=== PATIENT | male | born 1955 | race Caucasian/White ===

== ENCOUNTER 2023-08-13 13:19 | Inpatient (IN) | payer OTHER ==
[~2023-08-13 13:19] MED LIST: Iopamidol-370 76% 500 ML MDV (1 ML CHARGE) ONE
[2023-08-13] MEDS ORDERED: methylPREDNISolone Sod Succ/PF 125 MG/2 ML VIAL ONE (14:33)
[2023-08-13] MEDS ORDERED: Furosemide 40 MG/4 ML VIAL ONE (14:33)
[2023-08-13] MEDS ORDERED: Ipratropium/Albuterol 3 ML NEB ONE (15:29)
[2023-08-13 15:34] LABS: #Basophils 0.1 thou/uL (0.0-0.2); #Eosinphils 1.1 thou/uL (0.0-0.7); #Monocytes 0.7 thou/uL (0.11-0.59); %Basophils 0.9 % (0.0-1.0); %Eosinophils 12.2 % (0.0-10.0); %Lymphocytes 13.9 % (21.0-51.0); %Monocytes 7.9 % (0.0-10.0); %Neutrophils 64.8 % (42.0-75.0); Hematocrit 39.9 % (42.0-52.0); Hemoglobin 12.4 g/dL (14.0-18.0); Mean Corpuscular HGB CONC 31.1 g/dL (32.0-36.0); Mean Corpuscular Volume 83.6 fl (78.0-98.0); Mean Platelet Volume 9.3 fL (7.4-10.4); Platelet Count 258 10x3/uL (130-400); Red Blood Cell (RBC) Count 4.77 mill/uL (4.70-6.10); White Blood Cell (WBC) Count 9.3 10x3/uL (4.8-10.8)
[2023-08-13] MEDS ORDERED: dilTIAZem 25 MG/5 ML VIAL ONE (15:40)
[2023-08-13 15:48] LABS: INR-International Normal Ratio 1.3; PTT 32.7 sec (22.9-36.1); Prothrombin Time 16.7 sec (12.0-14.7)
[2023-08-13 15:56] LABS: D-Dimer Test 5.26 *mcg/mL (0.27-0.43)
[2023-08-13 16:01] LABS: ALT (SGPT) 8 U/L (8-55); AST (SGOT) 12 U/L (5-34); Albumin 3.6 g/dL (3.4-4.8); Alkaline Phosphatase 210 U/L (40-110); Anion Gap 16 mmol/L (10-20); BUN (Urea Nitrogen) 13 mg/dL (8.4-25.7); Bilirubin, Total 1.5 mg/dL (0.2-1.2); Calc. Creatinine Clearance 0 mL/min (70-130); Calcium 8.6 mg/dL (7.8-10.44); Carbon Dioxide 19 mmol/L (23-31); Chloride 103 mmol/L (98-107); Estimated GFR 99; Globulin 2.7 g/dL (2.4-3.5); Glucose 118 mg/dL (80-115); Lipase 7 U/L (8-78); Magnesium 1.7 mg/dL (1.6-2.6); Potassium 3.9 mmol/L (3.5-5.1); Protein, Total 6.3 g/dL (5.8-8.1); Sodium 134 mmol/L (136-145)
[2023-08-13 16:02] LABS: Troponin I 0.059 ng/mL (< 0.028)
[2023-08-13] MEDS ORDERED: Heparin 5,000 UNITS/ML VIAL ONE (16:32)
[2023-08-13] MEDS ORDERED: Heparin 25,000 units/D5W 500 ML ONE (16:32)
[2023-08-13 17:14] LABS: Bacteria/HPF None Seen HPF (None Seen); Bilirubin Negative (Negative); Blood, Urine Negative (Negative); CAUTI Indications for Culture Pelvic or flank pain; Clarity Clear (Clear); Glucose, Urine (Dipstick) Normal (Negative); Ketone, Urine Negative (Negative); Leukocyte Negative Leu/uL (Negative); Nitrite Negative (Negative); Protein, Urine (Dipstick) Negative (Neg-Trace); RBC/HPF 0-3 HPF (0-3); Specific Gravity, Urine 1.006 (1.002-1.036); Squamous Epithelial None Seen HPF (0-3); Urobilinogen Normal mg/dL (Less than 2); WBC/HPF 0-3 HPF (0-3); pH, Urine 6.5 (5.0-9.0)
[2023-08-13 17:15] LABS: Urine Culture Reflex No No
[2023-08-13] MEDS ORDERED: Ondansetron PF 4 MG/2 ML Vial IVP PRN (17:53)
[2023-08-13] MEDS ORDERED: Acetaminophen 325 MG TAB PO PRN (17:53)
[2023-08-13] MEDS ORDERED: Ondansetron ODT 4 MG TAB PO PRN (17:53)
[2023-08-13] MEDS ORDERED: Acetaminophen 650 MG Suppository PR PRN (17:53)
[2023-08-13] MEDS ORDERED: Ondansetron PF 4 MG/2 ML Vial ONE (17:54)
[2023-08-13] MEDS ORDERED: Ipratropium/Albuterol 3 ML NEB NEB PRN (17:57)
[2023-08-13] MEDS ORDERED: Electrolyte Replacement Protocol 1 EACH FS SCH (18:30)
[2023-08-13 19:40] VITALS: BMI 35.1
[2023-08-13] MEDS: Enoxaparin 120 MG/0.8 ML SYRINGE SC SCH (20:56)
[2023-08-13] MEDS ORDERED: Enoxaparin 100 MG (1 mL) SYRINGE SC SCH (21:00)
[2023-08-13] MEDS ORDERED: Magnesium 2 GM/50 ML(in water) 2 GM in Premix 1 BAG IVPB SCH (21:30)
[2023-08-14] MEDS: Furosemide 40 MG/4 ML VIAL SLOW IVP SCH ×2 (06:39→14:58)
[2023-08-14 07:24] LABS: #Monocytes 0.3 thou/uL (0.11-0.59); %Basophils 0.1 % (0.0-1.0); %Eosinophils 0.1 % (0.0-10.0); %Monocytes 4.8 % (0.0-10.0); %Neutrophils 85.6 % (42.0-75.0); Hematocrit 39.6 % (42.0-52.0); Hemoglobin 12.2 g/dL (14.0-18.0); Mean Corpuscular HGB CONC 30.8 g/dL (32.0-36.0); Mean Corpuscular Hemoglobin 26.1 pg (27.0-31.0); Mean Corpuscular Volume 84.8 fl (78.0-98.0); Mean Platelet Volume 9.9 fL (7.4-10.4); Platelet Count 189 10x3/uL (130-400); RBC Distribution Width 17.1 % (11.5-14.5); Red Blood Cell (RBC) Count 4.67 mill/uL (4.70-6.10)
[2023-08-14 07:48] LABS: Anion Gap 15 mmol/L (10-20); BUN (Urea Nitrogen) 12 mg/dL (8.4-25.7); Calc. Creatinine Clearance 168 mL/min (70-130); Calcium 8.4 mg/dL (7.8-10.44); Carbon Dioxide 19 mmol/L (23-31); Chloride 105 mmol/L (98-107); Estimated GFR 103; Glucose 121 mg/dL (80-115); Magnesium 1.8 mg/dL (1.6-2.6); Potassium 3.8 mmol/L (3.5-5.1); Sodium 135 mmol/L (136-145)
[2023-08-14] MEDS: Enoxaparin 120 MG/0.8 ML SYRINGE SC SCH ×2 (08:04→20:53)
[2023-08-14] MEDS ORDERED: Aspirin Chewable 81 MG TAB PO SCH (09:00)
[2023-08-14] MEDS ORDERED: Albuterol 200 PUFF (6.7GM INHALER) INH PRN (10:41)
[2023-08-14] MEDS ORDERED: Lactulose 20 GM (30 mL) UDCUP PO PRN (10:49)
[2023-08-14] MEDS ORDERED: Clopidogrel Bisulfate 75 MG TAB PO SCH (12:15)
[2023-08-14] MEDS ORDERED: Magnesium 2 GM/50 ML(in water) 2 GM in Premix 1 BAG IVPB SCH (14:15)
[2023-08-14] MEDS: Ipratropium Bromide 2.5 ml Neb NEB SCH ×2 (14:45→19:47)
[2023-08-14] MEDS: Carvedilol 6.25 MG TAB PO SCH (18:16)
[2023-08-14] MEDS: Arformoterol 15 MCG/2 ML NEB NEB SCH (19:47)
[2023-08-14] MEDS: Atorvastatin Calcium 40 MG TAB PO SCH (20:54)
[2023-08-14] MEDS: Terazosin HCl 5 MG CAP PO SCH (20:54)
[2023-08-15] MEDS: Ipratropium Bromide 2.5 ml Neb NEB SCH ×5 (01:05→23:20)
[2023-08-15] MEDS: Furosemide 40 MG/4 ML VIAL SLOW IVP SCH ×2 (05:42→15:06)
[2023-08-15] MEDS ORDERED: Metolazone 5 MG TAB PO SCH (07:30)
[2023-08-15] MEDS: Arformoterol 15 MCG/2 ML NEB NEB SCH ×2 (08:02→19:29)
[2023-08-15] MEDS: Digoxin 0.125 MG TAB PO SCH (08:34)
[2023-08-15] MEDS: Empagliflozin 10 MG TAB PO SCH (08:35)
[2023-08-15] MEDS: Spironolactone 25 MG TAB PO SCH (08:35)
[2023-08-15] MEDS: Carvedilol 6.25 MG TAB PO SCH ×2 (08:36→17:26)
[2023-08-15] MEDS: Clopidogrel Bisulfate 75 MG TAB PO SCH (08:36)
[2023-08-15] MEDS: Magnesium Oxide 400 MG TAB PO SCH (08:36)
[2023-08-15] MEDS: Lisinopril 2.5 MG TAB PO SCH (08:37)
[2023-08-15] MEDS: Enoxaparin 120 MG/0.8 ML SYRINGE SC SCH (08:38)
[2023-08-15] MEDS ORDERED: Rivaroxaban 10 MG TAB PO STA (11:10)
[2023-08-15 12:28] LABS: Magnesium 1.7 mg/dL (1.6-2.6)
[2023-08-15] MEDS: Atorvastatin Calcium 40 MG TAB PO SCH (20:13)
[2023-08-15] MEDS: Terazosin HCl 5 MG CAP PO SCH (20:14)
[2023-08-16] MEDS: Furosemide 40 MG/4 ML VIAL SLOW IVP SCH ×2 (05:40→16:19)
[2023-08-16 06:59] LABS: #Basophils 0.1 thou/uL (0.0-0.2); #Eosinphils 0.7 thou/uL (0.0-0.7); #Monocytes 0.7 thou/uL (0.11-0.59); #Neutrophils 5.5 thou/uL (1.40-6.50); %Basophils 0.7 % (0.0-1.0); %Eosinophils 8.4 % (0.0-10.0); %Lymphocytes 16.4 % (21.0-51.0); %Monocytes 8.6 % (0.0-10.0); %Neutrophils 65.5 % (42.0-75.0); Hematocrit 37.6 % (42.0-52.0); Hemoglobin 11.6 g/dL (14.0-18.0); Mean Corpuscular HGB CONC 30.9 g/dL (32.0-36.0); Mean Corpuscular Hemoglobin 25.9 pg (27.0-31.0); Mean Corpuscular Volume 83.9 fl (78.0-98.0); Mean Platelet Volume 9.9 fL (7.4-10.4); Platelet Count 223 10x3/uL (130-400); Red Blood Cell (RBC) Count 4.48 mill/uL (4.70-6.10); White Blood Cell (WBC) Count 8.4 10x3/uL (4.8-10.8)
[2023-08-16] MEDS: Arformoterol 15 MCG/2 ML NEB NEB SCH ×2 (07:05→19:03)
[2023-08-16] MEDS: Ipratropium Bromide 2.5 ml Neb NEB SCH ×4 (07:07→23:18)
[2023-08-16 07:25] LABS: Anion Gap 14 mmol/L (10-20); BUN (Urea Nitrogen) 18 mg/dL (8.4-25.7); Calc. Creatinine Clearance 123 mL/min (70-130); Calcium 8.8 mg/dL (7.8-10.44); Carbon Dioxide 28 mmol/L (23-31); Chloride 96 mmol/L (98-107); Estimated GFR 96; Glucose 116 mg/dL (80-115); Sodium 134 mmol/L (136-145)
[2023-08-16] MEDS ORDERED: Metolazone 5 MG TAB PO SCH (08:00)
[2023-08-16] MEDS: Digoxin 0.125 MG TAB PO SCH (08:24)
[2023-08-16] MEDS: Spironolactone 25 MG TAB PO SCH (08:25)
[2023-08-16] MEDS: Empagliflozin 10 MG TAB PO SCH (08:25)
[2023-08-16] MEDS: Carvedilol 6.25 MG TAB PO SCH ×2 (08:25→18:42)
[2023-08-16] MEDS: Lisinopril 2.5 MG TAB PO SCH (08:25)
[2023-08-16] MEDS: Clopidogrel Bisulfate 75 MG TAB PO SCH (08:25)
[2023-08-16] MEDS: Magnesium Oxide 400 MG TAB PO SCH (08:25)
[2023-08-16] MEDS: Rivaroxaban 10 MG TAB PO SCH (16:19)
[2023-08-16] MEDS ORDERED: Carvedilol 6.25 MG TAB PO SCH (21:00)
[2023-08-16] MEDS: Terazosin HCl 5 MG CAP PO SCH (21:05)
[2023-08-16] MEDS: Atorvastatin Calcium 40 MG TAB PO SCH (21:05)
[2023-08-17] MEDS: Furosemide 40 MG/4 ML VIAL SLOW IVP SCH (05:56)
[2023-08-17 06:02] LABS: Magnesium 1.5 mg/dL (1.6-2.6)
[2023-08-17 07:06] LABS: Anion Gap 15 mmol/L (10-20); BUN (Urea Nitrogen) 24 mg/dL (8.4-25.7); Calc. Creatinine Clearance 121 mL/min (70-130); Calcium 8.8 mg/dL (7.8-10.44); Carbon Dioxide 27 mmol/L (23-31); Chloride 94 mmol/L (98-107); Estimated GFR 97; Glucose 102 mg/dL (80-115); Potassium 3.9 mmol/L (3.5-5.1); Sodium 132 mmol/L (136-145)
[2023-08-17] MEDS: Arformoterol 15 MCG/2 ML NEB NEB SCH (07:33)
[2023-08-17] MEDS: Ipratropium Bromide 2.5 ml Neb NEB SCH ×3 (07:33→22:36)
[2023-08-17] MEDS ORDERED: Carvedilol 6.25 MG TAB PO SCH (08:00)
[2023-08-17] MEDS ORDERED: Magnesium 2 GM/50 ML(in water) 2 GM in Premix 1 BAG IVPB SCH (08:00)
[2023-08-17] MEDS: Lisinopril 2.5 MG TAB PO SCH (08:53)
[2023-08-17] MEDS: Magnesium Oxide 400 MG TAB PO SCH (08:54)
[2023-08-17] MEDS: Clopidogrel Bisulfate 75 MG TAB PO SCH (08:54)
[2023-08-17] MEDS: Spironolactone 25 MG TAB PO SCH (08:54)
[2023-08-17] MEDS: Digoxin 0.125 MG TAB PO SCH (08:54)
[2023-08-17] MEDS: Empagliflozin 10 MG TAB PO SCH (08:54)
[2023-08-17] MEDS: Rivaroxaban 10 MG TAB PO SCH (16:00)
[2023-08-17] MEDS: Carvedilol 6.25 MG TAB PO SCH (16:00)
[2023-08-17] MEDS: Furosemide 40 MG TAB PO SCH (16:00)
[2023-08-17] MEDS: Terazosin HCl 5 MG CAP PO SCH (22:37)
[2023-08-17] MEDS: Atorvastatin Calcium 40 MG TAB PO SCH (22:37)
[2023-08-18 06:39] LABS: Anion Gap 14 mmol/L (10-20); BUN (Urea Nitrogen) 29 mg/dL (8.4-25.7); Calc. Creatinine Clearance 116 mL/min (70-130); Calcium 8.8 mg/dL (7.8-10.44); Carbon Dioxide 28 mmol/L (23-31); Chloride 93 mmol/L (98-107); Estimated GFR 96; Glucose 99 mg/dL (80-115); Sodium 131 mmol/L (136-145)
[2023-08-18] MEDS: Ipratropium Bromide 2.5 ml Neb NEB SCH ×3 (06:49→14:00)
[2023-08-18 08:13] VITALS: TEMP 97.4
[2023-08-18] MEDS ORDERED: Lisinopril 5 MG TAB PO SCH (09:00)
[2023-08-18] MEDS: Carvedilol 6.25 MG TAB PO SCH (09:04)
[2023-08-18] MEDS: Furosemide 40 MG TAB PO SCH (09:04)
[2023-08-18] MEDS: Spironolactone 25 MG TAB PO SCH ×2 (09:04→09:05)
[2023-08-18] MEDS: Digoxin 0.125 MG TAB PO SCH (09:05)
[2023-08-18] MEDS: Clopidogrel Bisulfate 75 MG TAB PO SCH (09:05)
[2023-08-18] MEDS: Magnesium Oxide 400 MG TAB PO SCH ×2 (09:05→09:06)
[2023-08-18] MEDS: Empagliflozin 10 MG TAB PO SCH (09:05)
[2023-08-18] MEDS: Arformoterol 15 MCG/2 ML NEB NEB SCH (11:09)
[2023-08-18 12:32] VITALS: BP 123/63
== END 2023-08-18 14:30 | DRG 280 ==
LOC: ERS 13:19 → EEVIPCON 13:19 → 2SW 17:43
PROVIDERS: ADMIT Student in an Organized Health Care Education/Training Program; ATTEND Internal Medicine
PROC: 5A09357 Assistance with Respiratory Ventilation, Less than 24 Consecutive Hours, Continuous Positive Airway Pressure (ICD-10-PCS; principal; 2023-08-14)
DX: I11.0 Hypertensive heart disease with heart failure (principal); I21.A1 Myocardial infarction type 2; I50.23 Acute on chronic systolic (congestive) heart failure; E87.20 Acidosis, unspecified; R18.8 Other ascites; I82.411 Acute embolism and thrombosis of right femoral vein; I82.431 Acute embolism and thrombosis of right popliteal vein; I48.21 Permanent atrial fibrillation; J44.9 Chronic obstructive pulmonary disease, unspecified; I42.9 Cardiomyopathy, unspecified; I25.10 Atherosclerotic heart disease of native coronary artery without angina pectoris; K43.9 Ventral hernia without obstruction or gangrene; D64.9 Anemia, unspecified; K80.20 Calculus of gallbladder without cholecystitis without obstruction; I77.1 Stricture of artery; N62 Hypertrophy of breast; E78.5 Hyperlipidemia, unspecified; I48.0 Paroxysmal atrial fibrillation; Z95.1 Presence of aortocoronary bypass graft; I25.2 Old myocardial infarction; Z88.0 Allergy status to penicillin; Z95.810 Presence of automatic (implantable) cardiac defibrillator; Z79.51 Long term (current) use of inhaled steroids; Z79.899 Other long term (current) drug therapy
CPT/HCPCS: 36415; 71045; 71275; 74177; 80048; 80053; 81001; 83605; 83690; 83735; 83880; 84443; 84484; 85025; 85379; 85610; 85730; 87086; 93005; 93306; 93970; 94640; 96374; 96375; J1644; J1650; J1940; J2405; J2930; J3475; J7620; Q9967

== ENCOUNTER 2023-12-20 00:14 | Inpatient (IN) | payer OTHER ==
[2023-12-20 02:33] VITALS: BMI 38.6
[2023-12-20] MEDS ORDERED: Albuterol 200 PUFF INH INH PRN (02:37)
[2023-12-20 03:52] LABS: #Basophils 0.04 10x3/uL (0.0-0.2); %Basophils 0.4 % (0.0-1.0); %Eosinophils 1.9 % (0.0-10.0); %Lymphocytes 13.8 % (21.0-51.0); %Monocytes 8.8 % (0.0-10.0); %Neutrophils 74.9 % (42.0-75.0); Hematocrit 39.1 % (42.0-52.0); Hemoglobin 12.4 g/dL (14.0-18.0); Mean Corpuscular HGB CONC 31.7 g/dL (32.0-36.0); Mean Corpuscular Hemoglobin 26.8 pg (27.0-31.0); Mean Corpuscular Volume 84.6 fL (78.0-98.0); Mean Platelet Volume 10.1 fL (7.4-10.4); Platelet Count 207 10x3/uL (130-400); RBC Distribution Width 16.6 % (11.5-14.5); Red Blood Cell (RBC) Count 4.62 mill/uL (4.70-6.10)
[2023-12-20 04:12] LABS: ALT (SGPT) 6 U/L (8-55); AST (SGOT) 12 U/L (5-34); Albumin 3.9 g/dL (3.4-4.8); Alkaline Phosphatase 142 U/L (40-110); Anion Gap 16 mmol/L (10-20); BUN (Urea Nitrogen) 17 mg/dL (8.4-25.7); Bilirubin, Total 1.6 mg/dL (0.2-1.2); Calc. Creatinine Clearance 143 mL/min (70-130); Calcium 9.7 mg/dL (7.8-10.44); Carbon Dioxide 20 mmol/L (23-31); Chloride 104 mmol/L (98-107); Estimated GFR 95; Glucose 94 mg/dL (80-115); Magnesium 1.6 mg/dL (1.6-2.6); Potassium 3.5 mmol/L (3.5-5.1); Protein, Total 6.9 g/dL (5.8-8.1); Sodium 136 mmol/L (136-145)
[2023-12-20] MEDS ORDERED: Ipratropium/Albuterol 3 ML NEB NEB PRN (04:48)
[2023-12-20] MEDS: Furosemide 40 MG (4 mL) VIAL SLOW IVP SCH (05:30)
[2023-12-20] MEDS: Ipratropium Bromide 2.5 ml Neb NEB SCH (07:39)
[2023-12-20] MEDS: Arformoterol 15 MCG/2 ML NEB NEB SCH (07:41)
[2023-12-20] MEDS: Ipratropium/Albuterol 3 ML NEB NEB SCH ×3 (07:42→19:40)
[2023-12-20] MEDS: Spironolactone 25 MG TAB PO SCH (08:52)
[2023-12-20] MEDS: Carvedilol 6.25 MG TAB PO SCH (08:52)
[2023-12-20] MEDS: Lisinopril 2.5 MG TAB PO SCH ×2 (08:52→10:12)
[2023-12-20] MEDS: Empagliflozin 10 MG TAB PO SCH (08:52)
[2023-12-20] MEDS: Magnesium Oxide 400 MG TAB PO SCH (08:52)
[2023-12-20] MEDS: Rivaroxaban 10 MG TAB PO SCH (08:52)
[2023-12-20] MEDS: Digoxin 0.125 MG TAB PO SCH (08:53)
[2023-12-20] MEDS: Carvedilol 3.125 MG TAB PO SCH (16:51)
[2023-12-20] MEDS ORDERED: Lisinopril 5 MG TAB PO SCH (21:00)
[2023-12-20] MEDS: Atorvastatin Calcium 40 MG TAB PO SCH (23:29)
[2023-12-20] MEDS: Lisinopril 5 MG TAB PO SCH (23:30)
[2023-12-20] MEDS: Terazosin HCl 1 MG CAP PO SCH (23:31)
[2023-12-21 04:57] LABS: Anion Gap 15 mmol/L (10-20); BUN (Urea Nitrogen) 18 mg/dL (8.4-25.7); Calc. Creatinine Clearance 147 mL/min (70-130); Calcium 8.7 mg/dL (7.8-10.44); Carbon Dioxide 20 mmol/L (23-31); Chloride 106 mmol/L (98-107); Estimated GFR 96; Glucose 103 mg/dL (80-115); Potassium 3.7 mmol/L (3.5-5.1); Sodium 137 mmol/L (136-145)
[2023-12-21] MEDS ORDERED: Spironolactone 25 MG TAB PO SCH (08:00)
[2023-12-21] MEDS: Spironolactone 25 MG TAB PO SCH ×2 (09:18→10:21)
[2023-12-21] MEDS: Furosemide 40 MG (4 mL) VIAL SLOW IVP SCH ×2 (10:21→16:38)
[2023-12-22 06:19] LABS: Anion Gap 12 mmol/L (10-20); BUN (Urea Nitrogen) 22 mg/dL (8.4-25.7); Calc. Creatinine Clearance 134 mL/min (70-130); Calcium 9.1 mg/dL (7.8-10.44); Carbon Dioxide 23 mmol/L (23-31); Chloride 105 mmol/L (98-107); Estimated GFR 94; Glucose 113 mg/dL (80-115); Potassium 3.7 mmol/L (3.5-5.1); Sodium 136 mmol/L (136-145)
[2023-12-22] MEDS: Spironolactone 25 MG TAB PO SCH (08:18)
[2023-12-22] MEDS: Metolazone 5 MG TAB PO SCH (08:19)
[2023-12-23 06:48] LABS: Anion Gap 15 mmol/L (10-20); BUN (Urea Nitrogen) 22 mg/dL (8.4-25.7); Calc. Creatinine Clearance 135 mL/min (70-130); Calcium 9.2 mg/dL (7.8-10.44); Carbon Dioxide 24 mmol/L (23-31); Chloride 100 mmol/L (98-107); Estimated GFR 94; Glucose 108 mg/dL (80-115); Potassium 3.6 mmol/L (3.5-5.1); Sodium 135 mmol/L (136-145)
[2023-12-25 01:44] LABS: Troponin I 0.035 ng/mL (< 0.028)
[2023-12-25] MEDS: Midodrine HCl 5 MG TAB PO SCH (04:22)
[2023-12-25] MEDS: Metolazone 5 MG TAB PO SCH (09:52)
[2023-12-26] MEDS: Nitroglycerin 2% Ointment 1 INCH/1 GM Packet ONE (04:33)
[2023-12-26] MEDS: Clopidogrel Bisulfate 300 MG TAB PO SCH (09:29)
[2023-12-27 04:52] LABS: Anion Gap 13 mmol/L (10-20); BUN (Urea Nitrogen) 47 mg/dL (8.4-25.7); Calc. Creatinine Clearance 85 mL/min (70-130); Calcium 9.5 mg/dL (7.8-10.44); Carbon Dioxide 27 mmol/L (23-31); Chloride 95 mmol/L (98-107); Estimated GFR 57; Glucose 87 mg/dL (80-115); Potassium 4.4 mmol/L (3.5-5.1); Sodium 131 mmol/L (136-145)
[2023-12-27 07:54] VITALS: BMI 35.5
[2023-12-27] MEDS: Clopidogrel Bisulfate 75 MG TAB PO SCH (08:19)
[2023-12-27] MEDS: Furosemide 80 MG TAB PO SCH (15:09)
[2023-12-27] MEDS ORDERED: Loperamide HCl 2 MG CAP PO PRN (17:22)
[2023-12-27] MEDS: Loperamide HCl 2 MG CAP PO SCH (19:06)
[2023-12-27 20:54] LABS: Campy jejuni + coli by PCR Negative (Negative); STEC Shiga Toxin 1+2 Negative (Negative); Salmonella spp. by PCR Negative (Negative); Shigella spp + EIEC by PCR Negative (Negative)
[2023-12-28 04:52] LABS: #Basophils Less than 0.03 10x3/uL (0.0-0.2); %Basophils 0.3 % (0.0-1.0); %Eosinophils 4.4 % (0.0-10.0); %Lymphocytes 11.3 % (21.0-51.0); %Monocytes 9.3 % (0.0-10.0); %Neutrophils 74.3 % (42.0-75.0); Hemoglobin 10.1 g/dL (14.0-18.0); Mean Corpuscular HGB CONC 31.6 g/dL (32.0-36.0); Mean Corpuscular Hemoglobin 27.1 pg (27.0-31.0); Mean Corpuscular Volume 85.8 fL (78.0-98.0); Mean Platelet Volume 10.7 fL (7.4-10.4); Platelet Count 142 10x3/uL (130-400); Red Blood Cell (RBC) Count 3.73 mill/uL (4.70-6.10)
[2023-12-28 05:12] LABS: Anion Gap 16 mmol/L (10-20); BUN (Urea Nitrogen) 55 mg/dL (8.4-25.7); Calc. Creatinine Clearance 91 mL/min (70-130); Calcium 9.3 mg/dL (7.8-10.44); Carbon Dioxide 23 mmol/L (23-31); Chloride 96 mmol/L (98-107); Estimated GFR 65; Glucose 87 mg/dL (80-115); Potassium 4.3 mmol/L (3.5-5.1); Sodium 131 mmol/L (136-145)
[2023-12-28 19:29] VITALS: BP 129/76; TEMP 98.3
== END 2023-12-28 21:55 | DRG 291 ==
LOC: 2NO 01:19 → EEVIPCON 01:19
PROVIDERS: ADMIT Student in an Organized Health Care Education/Training Program; ATTEND Internal Medicine
PROC: 5A09457 Assistance with Respiratory Ventilation, 24-96 Consecutive Hours, Continuous Positive Airway Pressure (ICD-10-PCS; principal; 2023-12-21)
DX: I11.0 Hypertensive heart disease with heart failure (principal); I50.21 Acute systolic (congestive) heart failure; I50.23 Acute on chronic systolic (congestive) heart failure; I48.21 Permanent atrial fibrillation; E87.1 Hypo-osmolality and hyponatremia; N17.9 Acute kidney failure, unspecified; J44.9 Chronic obstructive pulmonary disease, unspecified; K43.9 Ventral hernia without obstruction or gangrene; Z88.0 Allergy status to penicillin; Z79.899 Other long term (current) drug therapy; G47.33 Obstructive sleep apnea (adult) (pediatric); Z95.1 Presence of aortocoronary bypass graft; Z95.810 Presence of automatic (implantable) cardiac defibrillator; I25.5 Ischemic cardiomyopathy; E66.9 Obesity, unspecified; Z68.36 Body mass index [BMI] 36.0-36.9, adult; I42.0 Dilated cardiomyopathy; G40.909 Epilepsy, unspecified, not intractable, without status epilepticus
CPT/HCPCS: 36415; 36416; 71045; 80048; 80053; 83735; 83880; 84484; 85025; 87324; 87449; 87505; 93005; 93010; 94640; 94660; 96374; 97139; J1940; J7620